=== PATIENT | female | born 1975 | race Caucasian/White ===

== ENCOUNTER 2017-06-26 21:25 | Emergency (ER) | payer OTHER ==
[~2017-06-26] VITALS: Ht 172.7 cm; Wt 88.5 kg
[2017-06-26 21:28] VITALS: BP 140/86
[2017-06-26] MEDS ORDERED: ANAPROX DS550 MG PO (23:06)
== END 2017-06-26 23:30 | disposition home or self-care (01) ==
LOC: ED 21:25
DX: M23.8X1 Other internal derangements of right knee (principal)